=== PATIENT | female | born 1980 | race Caucasian/White ===

== ENCOUNTER 2017-01-10 08:32 | Emergency (ER) | payer OTHER ==
[~2017-01-10] VITALS: Ht 162.6 cm; Wt 49.9 kg
[~2017-01-10 08:32] MED LIST: IBUP800T19 PO; METO10TA81 PO
[2017-01-10 09:15] LABS: BASO # 0.1 x10^3/uL (0.0-0.2); BASO % 1 % (0-3); EOS % 0 % (0-3); HEMATOCRIT 38.8 % (36.0-47.0); HEMOGLOBIN 12.9 g/dL (12.0-15.5); LYMPH # 1.6 x10^3/uL (1.0-4.8); LYMPH % 15 % (24-48); MEAN CORPUSCULAR HEMOGLOBIN 28 pg (25-35); MEAN CORPUSCULAR HGB CONC 33 g/dL (31-37); MEAN CORPUSCULAR VOLUME 84 fL (79-100); MONO # 0.4 x10^3/uL (0.0-1.1); MONO % 4 % (0-9); NEUT # 8.7 x10^3uL (1.8-7.7); NEUT % 81 % (31-73); PLATELET COUNT 205 x10^3/uL (140-400); RED BLOOD COUNT 4.59 x10^6/uL (3.50-5.40); RED CELL DISTRIBUTION WIDTH 16.1 % (11.5-14.5); WHITE BLOOD COUNT 10.8 x10^3/uL (4.0-11.0)
[2017-01-10 09:17] LABS: PREG TEST PT QUAL NEGATIVE (NEG)
[2017-01-10] MEDS: HYDROmorphone PF 1 MG/ML DISP.SYRIN IV/SQ PRN ×2 (09:23→10:45)
--- NOTE | 2017-01-10 09:25 | PHYS DOC ---
Past History Past Medical History: IBS Past Surgical History: Cholecystectomy, Alcohol Use: None Drug Use: None Adult General Chief Complaint Chief Complaint: ABDOMINAL PAIN HPI HPI 36-year-old female with a history of IBS presenting to the emergency department with epigastric abdominal pain that is nonradiating moderate intermittent and without alleviating factors. She denies being reports normal stooling, denies blood in her stools or dark stools. She denies history of alcoholism corticosteroid use or excessive ibuprofen or NSAID use. She denies fevers chills but does have nausea. Review of systems is negative for chest pain shortness of breath fevers chills. Positive for chronic intermittent diarrhea and constipation consistent with her IBS. All other review of systems is negative unless otherwise noted in history of present illness. ED course: 36-year-old female presenting to the emergency department today with epigastric abdominal pain. Patient's vital signs were reviewed. Afebrile saturating well on room air with mild elevation in her heart rate. IV established and IV fluids and pain medications administered in the emergency department. Blood work sent. Pertinent examination findings show soft and minimally tender abdomen generally without rebound tenderness or guarding. Negative Salcedo sign. Negative McBurney's point. Under clear to auscultation. The remainder the exam is unremarkable. On reexamination the patient's feeling much better and subsequently was discharged home. The patient was then discharged home in stable condition to follow up with their primary care physician over the next 2-3 days. They were to return if their symptoms worsened or if they were concerned for any reason. [id number] discharge instructions and return precautions were given. Patient's questions were answered to their satisfaction. Patient is comfortable plan. Review of Systems Review of Systems SEE ABOVE Current Medications Current Medications Current Medications Medications (Trade) Dose Ordered Sig/[facility] Start Time Stop Time Status Last Admin Dose Admin Hydromorphone HCl (Dilaudid) 0.5 mg PRN Q15MIN PRN 01/10/17 09:00 01/11/17 08:59 Sodium Chloride 1,000 ml @ 1,000 mls/hr Q1H 01/10/17 09:30 01/10/17 10:29 Allergies Allergies Allergies Coded Allergies Type Severity Reaction Last Updated Verified No Known Drug Allergies 06/07/16 No Physical Exam Physical Exam SEE ABOVE Constitutional: Well developed, well nourished, no acute distress, non-toxic appearance. [] HENT: Normocephalic, atraumatic, bilateral external ears normal, oropharynx moist, no oral exudates, nose normal. [] Eyes: PERRLA, EOMI, conjunctiva normal, no discharge. [] Neck: Normal range of motion, no tenderness, supple, no stridor. [] Cardiovascular:Heart rate regular rhythm, no murmur [] Lungs & Thorax: Bilateral breath sounds clear to auscultation [] Abdomen: see above Skin: Warm, dry, no erythema, no rash. [] Back: No tenderness, no CVA tenderness. [] Extremities: No tenderness, no cyanosis, no clubbing, ROM intact, no edema. [] Neurologic: Alert and oriented X 3, normal motor function, normal sensory function, no focal deficits noted. [] Psychologic: Affect normal, judgement normal, mood normal. [] Current Patient Data Lab Results Laboratory Tests Test 01/10/17 08:56 White Blood Count 10.8 x10^3/uL (4.0-11.0) Red Blood Count 4.59 x10^6/uL (3.50-5.40) Hemoglobin 12.9 g/dL (12.0-15.5) Hematocrit 38.8 % (36.0-47.0) Mean Corpuscular Volume 84 fL (79-100) Mean Corpuscular Hemoglobin 28 pg (25-35) Mean Corpuscular Hemoglobin Concent 33 g/dL (31-37) Red Cell Distribution Width 16.1 % (11.5-14.5) H Platelet Count 205 x10^3/uL (140-400) Neutrophils (%) (Auto) 81 % (31-73) H Lymphocytes (%) (Auto) 15 % (24-48) L Monocytes (%) (Auto) 4 % (0-9) Eosinophils (%) (Auto) 0 % (0-3) Basophils (%) (Auto) 1 % (0-3) Neutrophils # (Auto) 8.7 x10^3uL (1.8-7.7) H Lymphocytes # (Auto) 1.6 x10^3/uL (1.0-4.8) Monocytes # (Auto) 0.4 x10^3/uL (0.0-1.1) Eosinophils # (Auto) 0.0 x10^3/uL (0.0-0.7) Basophils # (Auto) 0.1 x10^3/uL (0.0-0.2) Serum Test, Qualitative Negative (NEG) EKG EKG [] Radiology/Procedures Radiology/Procedures [] Course & Med Decision Making Course & Med Decision Making Pertinent Labs and Imaging studies reviewed. (See chart for details) [] Dragon Disclaimer Dragon Disclaimer This chart was dictated in whole or in part using Voice Recognition software in a busy, high-work load, and often noisy Emergency Department environment. It may contain unintended and wholly unrecognized errors or omissions. Departure Departure: Impression: Primary Impression: Abdominal pain Disposition: HOME, SELF-CARE Condition: STABLE Referrals: MONSE MALLOY MD (PCP) Patient Instructions: Abdominal Pain, Women Additional Instructions: Thank you for allowing us to participate in your care today. Followup with your primary care physician in 3 days if your symptoms do not improve. Call your Primary Doctor tomorrow and inform them of your visit today. If you do not have a primary care provider you can ask for a list of our primary care providers. Return to the emergency department you have any new or concerning findings. This should be evaluated by the primary care physician and any necessary consulting services for continued management within a few days after discharge. Return to emergency room if you have any new or concerning symptoms including but not limited to fever, chills, nausea, vomiting, intractable pain, any new rashes, chest pain, shortness of air, uncontrolled bleeding, difficulty breathing, and/or vision loss. You may have been prescribed medication that can change in your level of thinking and ability to operate machinery. These medications include hydrocodone and Ativan. Also, Benadryl has been known to do this as well. Be sure to check with your pharmacist and ask if the medications you've prescribed can affect your level of consciousness. I recommend not operating heavy machinery or driving while on medication such as these. Scripts Ondansetron Hcl (ZOFRAN) 4 Mg Tablet 1 TAB PO PRN Q6HRS Y for NAUSEA, #6 TAB Prov: PAO ZUNIGA MD 01/10/17 Hydrocodone Bit/Acetaminophen (HYDROCODONE-APAP 5-325 ) 1 Each Tablet 1 TAB PO PRN Q6HRS Y for PAIN, #10 TAB 0 Refills Prov: PAO ZUNIGA MD 01/10/17 Famotidine (PEPCID) 20 Mg Tablet 1 TAB PO BID, #7 TAB 0 Refills Prov: PAO ZUNIGA MD 01/10/17 PAO ZUNIGA MD Jan 10, 2017 09:25
[2017-01-10] MEDS ORDERED: IV NORMAL SALINE 1,000ML 1,000 ML IV SCH (09:30)
[2017-01-10] MEDS ORDERED: FAMO-63 PO (09:31)
[2017-01-10] MEDS ORDERED: ONDA4TAB7 PO (09:31)
[2017-01-10] MEDS ORDERED: HYDR-2758 PO (09:31)
[2017-01-10 09:36] LABS: ALBUMIN 3.4 g/dL (3.4-5.0); CALCIUM 9.2 mg/dL (8.5-10.1); CREATININE 0.8 mg/dL (0.6-1.0); DIRECT BILIRUBIN 0.1 mg/dL (0.0-0.2); GFR 81.6; POTASSIUM 4.2 mmol/L (3.5-5.1); TOTAL BILIRUBIN 0.2 mg/dL (0.2-1.0); TOTAL PROTEIN 7.4 g/dL (6.4-8.2)
[2017-01-10] MEDS ORDERED: ONDANSETRON PF 4 MG/2 ML VIAL. IV ONE (10:10)
[2017-01-10 10:42] LABS: BACTERIA,URINE 0 /HPF (0-FEW); BILIRUBIN,URINE NEG (NEG); CLARITY,URINE CLEAR; COLOR,URINE YELLOW; GLUCOSE,URINE NEG (NEG); HYALINE CASTS, URINE OCC /HPF; NITRITE,URINE NEG (NEG); SQUAMOUS EPITHELIAL CELL,UR FEW /LPF; UROBILINOGEN,URINE 0.2 mg/dL (0.2 mg/dL); WBC,URINE OCC /HPF (0-4)
[2017-01-10 11:15] VITALS: BP 116/74
== END 2017-01-10 11:20 | disposition home or self-care (01) ==
LOC: ER 08:32
DX: R10.13 Epigastric pain (principal); K58.9 Irritable bowel syndrome, unspecified; Z90.49 Acquired absence of other specified parts of digestive tract; Z98.890 Other specified postprocedural states
CPT/HCPCS: 36415; 80048; 80076; 81001; 83690; 84703; 85027; 96361; 96374; 96375; 96376; 99285; J1170; J2405; J7030

== ENCOUNTER 2018-11-20 01:40 | Emergency (ER) | payer OTHER ==
[~2018-11-20] VITALS: Ht 162.6 cm; Wt 49.9 kg
[~2018-11-20 01:40] MED LIST changes: +FAMO-63 PO; +HYDR-2155 PO; +ONDA4TAB7 PO
[2018-11-20] MEDS ORDERED: ONDANSETRON PF 4 MG/2 ML VIAL. IV ONE ×4 (02:30→03:30)
[2018-11-20] MEDS ORDERED: IV NORMAL SALINE 1,000ML 1,000 ML IV ONE (02:30)
--- NOTE | 2018-11-20 02:47 | PHYS DOC ---
Past History Past Medical History: IBS Past Surgical History: Cholecystectomy, Alcohol Use: Occasionally Drug Use: None Adult General Chief Complaint Chief Complaint: ABDOMINAL PAIN HPI HPI 38-year-old female presents with left-sided abdominal pain. 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 She is on Cymbalta, gets trigger injections, and nerve blocks with this disorder. Sometimes, it still gets adequate control and she has increased pain and spasming in the left abdominal wall. She has had multiple CT scans in the past without significant findings. She denies trauma or new inciting event. She denies fever or chills. Both morphine and fentanyl have worked in the past. The patient is willing to try whatever I think will help. Review of Systems Review of Systems Constitutional: Denies fever or chills [] Eyes: Denies change in visual acuity, redness, or eye pain [] HENT: Denies nasal congestion or sore throat [] Respiratory: Denies cough or shortness of breath [] Cardiovascular: No additional information not addressed in HPI [] GI: Left-sided abdominal pain. Denies nausea, vomiting, bloody stools or diarrhea [] : Denies dysuria or hematuria [] Musculoskeletal: Denies back pain or joint pain [] Integument: Denies rash or skin lesions [] Neurologic: Denies headache, focal weakness or sensory changes [] Endocrine: Denies polyuria or polydipsia [] All other systems were reviewed and found to be within normal limits, except as documented in this note. Current Medications Current Medications Current Medications Medications (Trade) Dose Ordered Sig/[facility] Start Time Stop Time Status Last Admin Dose Admin Ondansetron HCl (Zofran) 4 mg 1X ONCE 11/20/18 02:30 11/20/18 02:31 DC 11/20/18 02:31 4 MG Sodium Chloride 1,000 ml @ 1,000 mls/hr 1X ONCE 11/20/18 02:30 11/20/18 03:29 11/20/18 02:31 1,000 MLS/HR Allergies Allergies Allergies Coded Allergies Type Severity Reaction Last Updated Verified No Known Drug Allergies 06/07/16 No Physical Exam Physical Exam Constitutional: Well developed, well nourished, no acute distress, non-toxic appearance. [] HENT: Normocephalic, atraumatic, bilateral external ears normal, oropharynx moist, no oral exudates, nose normal. [] Eyes: PERRLA, EOMI, conjunctiva normal, no discharge. [] Neck: Normal range of motion, no tenderness, supple, no stridor. [] Cardiovascular:Heart rate regular rhythm, no murmur [] Lungs & Thorax: Bilateral breath sounds clear to auscultation [] Abdomen: Bowel sounds normal, soft, left sided tenderness, no masses, no pulsatile masses. [] Skin: Warm, dry, no erythema, no rash. [] Back: No tenderness, no CVA tenderness. [] Extremities: No tenderness, no cyanosis, no clubbing, ROM intact, no edema. [] Neurologic: Alert and oriented X 3, normal motor function, normal sensory function, no focal deficits noted. [] Psychologic: Affect normal, judgement normal, mood normal. [] Current Patient Data Vital Signs Vital Signs Date Time Temp Pulse Resp B/P (MAP) Pulse Ox O2 Delivery O2 Flow Rate FiO2 11/20/18 02:11 98.2 79 14 99 Room Air EKG EKG [] Radiology/Procedures Radiology/Procedures [] Course & Med Decision Making Course & Med Decision Making Pertinent Labs and Imaging studies reviewed. (See chart for details) I looked up the patient in the drug tracking database. She only has one entry from last year. I will give her 2 mg of morphine as well as 2 mg of Ativan to see if this controls her symptoms. Labs are pending. I will avoid a CT scan unless she has abnormal labs. The patient's labs are unremarkable. I do not believe a CT is warranted. The patient's pain is much improved at this time. She is stable for discharge. [] Dragon Disclaimer Dragon Disclaimer This electronic medical record was generated, in whole or in part, using a voice recognition dictation system. Departure Departure: Impression: Primary Impression: Left sided abdominal pain Disposition: HOME, SELF-CARE Condition: STABLE Referrals: MONSE MALLOY MD (PCP) Patient Instructions: Abdominal Pain, Women JEANETTE LEAL DO Nov 20, 2018 02:47
[2018-11-20 02:59] LABS: BASO # 0.1 x10^3/uL (0.0-0.2); BASO % 1 % (0-3); EOS % 0 % (0-3); HEMATOCRIT 40.1 % (36.0-47.0); HEMOGLOBIN 13.7 g/dL (12.0-15.5); LYMPH # 1.3 x10^3/uL (1.0-4.8); LYMPH % 12 % (24-48); MEAN CORPUSCULAR HEMOGLOBIN 32 pg (25-35); MEAN CORPUSCULAR HGB CONC 34 g/dL (31-37); MEAN CORPUSCULAR VOLUME 92 fL (79-100); MONO # 0.4 x10^3/uL (0.0-1.1); MONO % 4 % (0-9); NEUT # 8.7 x10^3uL (1.8-7.7); NEUT % 83 % (31-73); PLATELET COUNT 259 x10^3/uL (140-400); RED BLOOD COUNT 4.36 x10^6/uL (3.50-5.40); RED CELL DISTRIBUTION WIDTH 12.8 % (11.5-14.5); WHITE BLOOD COUNT 10.5 x10^3/uL (4.0-11.0)
[2018-11-20] MEDS ORDERED: MORPHINE SULFATE 2 MG/ML DISP.SYRIN. IV ONE (03:00)
[2018-11-20 03:05] LABS: ALBUMIN 3.5 g/dL (3.4-5.0); ALBUMIN/GLOBULIN RATIO 0.9 (1.0-1.7); CALCIUM 9.7 mg/dL (8.5-10.1); CREATININE 0.7 mg/dL (0.6-1.0); GFR 94.2; POTASSIUM 4.1 mmol/L (3.5-5.1); TOTAL BILIRUBIN 0.3 mg/dL (0.2-1.0); TOTAL PROTEIN 7.4 g/dL (6.4-8.2)
[2018-11-20 03:16] LABS: BILIRUBIN,URINE NEG (NEG); CLARITY,URINE HAZY; COLOR,URINE YELLOW; GLUCOSE,URINE NEG (NEG)
[2018-11-20 03:17] LABS: BACTERIA,URINE FEW /HPF (0-FEW); NITRITE,URINE NEG (NEG); SQUAMOUS EPITHELIAL CELL,UR FEW /LPF; UROBILINOGEN,URINE 0.2 mg/dL (0.2 mg/dL); WBC,URINE OCC /HPF (0-4)
[2018-11-20 03:45] VITALS: BP 135/86
== END 2018-11-20 04:03 | disposition home or self-care (01) ==
LOC: ER 01:40
DX: R10.9 Unspecified abdominal pain (principal); K58.9 Irritable bowel syndrome, unspecified; Z90.49 Acquired absence of other specified parts of digestive tract; Z98.890 Other specified postprocedural states
CPT/HCPCS: 36415; 80053; 81001; 81025; 85025; 96374; 96375; 96376; 99284; J2060; J2270; J2405; J7030

== ENCOUNTER 2018-11-20 08:18 | Emergency (ER) | payer OTHER ==
[~2018-11-20] VITALS: Ht 162.6 cm; Wt 49.9 kg
[2018-11-20 08:29] VITALS: BP 133/87
--- NOTE | 2018-11-20 08:35 | PHYS DOC ---
Past History Past Medical History: IBS Past Surgical History: Cholecystectomy, Alcohol Use: Occasionally Drug Use: None Adult General Chief Complaint Chief Complaint: ABDOMINAL PAIN [facility] HPI Patient is a 38-year-old female who presents with complaint of continued abdominal pain with vomiting. Patient indicates that she has chronic abdominal pain due to endometriosis. He states that she has a nerve bundle that they provide trigger point injections and nerve blocks for over at . She states that she was seen here earlier this morning and had been given some medications but she states that they have not helped with her pain. Patient states that she is usually given fentanyl for pain. She states that that is what helps.[] Review of Systems Review of Systems Constitutional: Denies fever or chills [] Respiratory: Denies cough or shortness of breath [] Cardiovascular: No additional information not addressed in HPI [] GI: Complains of abdominal pain with nausea and vomiting. Denies diarrhea [] Integument: Denies rash or skin lesions [] All other systems were reviewed and found to be within normal limits, except as documented in this note. Allergies Allergies Allergies Coded Allergies Type Severity Reaction Last Updated Verified No Known Drug Allergies 06/07/16 No Physical Exam Physical Exam Constitutional: Well developed, well nourished, no acute distress, non-toxic appearance. [] HENT: Normocephalic, atraumatic, bilateral external ears normal, oropharynx moist, no oral exudates, nose normal. [] Eyes: PERRLA, EOMI, conjunctiva normal, no discharge. [] Neck: Normal range of motion, no tenderness, supple, no stridor. [] Cardiovascular: Regular rate and rhythm[] Lungs & Thorax: Bilateral breath sounds clear to auscultation [] Abdomen: Bowel sounds normal, soft, with diffuse reported tenderness. [] Skin: Warm, dry, no erythema, no rash. [] Extremities: No tenderness, no cyanosis, no clubbing, ROM intact. [] Neurologic: Alert and oriented X 3, no focal deficits noted. [] EKG EKG [] Radiology/Procedures Radiology/Procedures [] Course & Med Decision Making Course & Med Decision Making Pertinent Labs and Imaging studies reviewed. (See chart for details) [] Dragon Disclaimer Dragon Disclaimer This electronic medical record was generated, in whole or in part, using a voice recognition dictation system. Departure Departure: Impression: Primary Impression: Chronic abdominal pain Disposition: HOME, SELF-CARE Condition: STABLE Referrals: MONSE MALLOY MD (PCP) Patient Instructions: Abdominal Pain, Chronic Pain, Chronic Pain Management SALINAS LITTLE Jr. DO Nov 20, 2018 08:35
[2018-11-20] MEDS ORDERED: METOCLOPRAMIDE HCL 10 MG/2 ML VIAL. IM ONE (09:10)
== END 2018-11-20 09:46 | disposition home or self-care (01) ==
LOC: ER 08:18
DX: G89.29 Other chronic pain (principal); R10.84 Generalized abdominal pain; K58.9 Irritable bowel syndrome, unspecified; Z90.49 Acquired absence of other specified parts of digestive tract; Z98.890 Other specified postprocedural states
CPT/HCPCS: 96372; 99284; J2765; J3010

== ENCOUNTER 2020-01-21 14:02 | Emergency (ER) | payer OTHER ==
[~2020-01-21] VITALS: Ht 162.6 cm; Wt 53.2 kg
[2020-01-21] MEDS ORDERED: KETOROLAC 15 MG/ML VIAL. ONE (14:27)
[2020-01-21] MEDS ORDERED: IV NORMAL SALINE 1,000ML 1,000 ML IV ONE (14:30)
[2020-01-21] MEDS ORDERED: IOHEXOL 300 MG/ML 75 ML VIAL. IV ONE (14:45)
[2020-01-21] MEDS ORDERED: KETOROLAC 15 MG/ML VIAL. IVP ONE (14:45)
[2020-01-21 15:01] LABS: BASO % 1 % (0-3); EOS % 1 % (0-3); HEMATOCRIT 37.6 % (36.0-47.0); HEMOGLOBIN 12.6 g/dL (12.0-15.5); LYMPH % 32 % (24-48); MEAN CORPUSCULAR HEMOGLOBIN 32 pg (25-35); MEAN CORPUSCULAR HGB CONC 34 g/dL (31-37); MEAN CORPUSCULAR VOLUME 94 fL (79-100); MONO # 0.4 x10^3/uL (0.0-1.1); MONO % 7 % (0-9); NEUT # 3.8 x10^3uL (1.8-7.7); NEUT % 60 % (31-73); PLATELET COUNT 208 x10^3/uL (140-400); RED BLOOD COUNT 3.98 x10^6/uL (3.50-5.40); RED CELL DISTRIBUTION WIDTH 12.2 % (11.5-14.5); WHITE BLOOD COUNT 6.3 x10^3/uL (4.0-11.0)
[2020-01-21 15:09] LABS: CALCIUM 8.8 mg/dL (8.5-10.1); CREATININE 0.8 mg/dL (0.6-1.0); GFR 80.3; POTASSIUM 3.7 mmol/L (3.5-5.1)
[2020-01-21 15:13] LABS: ALBUMIN 3.2 g/dL (3.4-5.0); ALBUMIN/GLOBULIN RATIO 0.7 (1.0-1.7); TOTAL BILIRUBIN 0.3 mg/dL (0.2-1.0); TOTAL PROTEIN 7.5 g/dL (6.4-8.2)
[2020-01-21 15:15] LABS: BILIRUBIN,URINE NEG (NEG); CLARITY,URINE HAZY; COLOR,URINE STRAW; GLUCOSE,URINE NEG (NEG)
[2020-01-21 15:16] LABS: NITRITE,URINE NEG (NEG); RBC,URINE OCC /HPF (0-2); UROBILINOGEN,URINE 0.2 mg/dL (0.2 mg/dL)
[2020-01-21 15:17] LABS: BACTERIA,URINE FEW /HPF (0-FEW); SQUAMOUS EPITHELIAL CELL,UR OCC /LPF
--- NOTE | 2020-01-21 15:34 | RAD ---
Study: CT abdomen/pelvis with intravenous contrast Indication: Abdominal pain. Comparison: None. Technique: Helical CT imaging performed of the abdomen and pelvis after the intravenous administration of 75 cc Omnipaque 300 contrast. Sagittal and coronal reformats were obtained. One or more of the following individualized dose reduction techniques were utilized for this examination: 1. Automated exposure control 2. Adjustment of the mA and/or kV according to patient size 3. Use of iterative reconstruction technique. Findings: Chest: Unremarkable. Liver: Unremarkable. Gallbladder/Biliary Tree: Mild prominence of the central intrahepatic biliary tree and common duct in the setting of previous cholecystectomy typical of reservoir effect. Pancreas: Unremarkable. Spleen: Normal. Adrenal Glands: Unremarkable. Kidneys/Ureters/Bladder: Approximately 4 small intrarenal stones on the left. No stones seen on the right. No no stone seen within either ureter or within the bladder. Mild asymmetric prominence of the left renal pelvis and similar intermittent prominence of both ureters. 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 Normal bladder wall thickness. No striated nephrogram. Reproductive Organs: Thickening of the endometrium is not atypical given patient age. There does appear to be a small amount of fluid within the endometrial canal, image 32 series 4. Small right adnexal cyst, likely ovarian in origin, image 62 series 2 measuring up to 1.3 cm. Colon: No acute abnormality. Appendix: Unremarkable. Small Bowel: Nonobstructed. Stomach: Unremarkable. Vasculature: Within normal limits. Lymph Nodes: Scattered mildly prominent mesenteric lymph nodes but all measuring subcentimeter in size. No pathologically enlarged lymph node is identified. Peritoneum and Body Wall: No free fluid or gas. Bones: No acute or aggressive osseous process. Mild broad levocurvature of the visualized orbital lumbar spine. Miscellaneous: None. Impression: 1. No acute abnormality seen throughout the abdomen or pelvis. The endometrium is thickened and there does appear to be a small amount of fluid within the endometrial canal but this is not overtly abnormal given presumed premenopausal state. As deemed necessary, pelvic ultrasound could be performed to further assess. 2. Approximately four small intrarenal stones on the left but no obstructing stone is seen. 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 Electronically signed by: INDIA DICKSON MD (01/21/2020 3:31 PM) [id number]
--- NOTE | 2020-01-21 16:23 | PHYS DOC ---
Past History Past Medical History: Endometriosis, Other Additional Past Medical Histor: ABD MIGRANES Past Surgical History: Cholecystectomy, , Tubal ligation, Other Additional Past Surgical Histo: ABD EXPLOR LAP Alcohol Use: Occasionally Drug Use: None General Adult EDM: Chief Complaint: PELVIC PAIN HPI: HPI: Patient is a [age] year old [sex] who presents with [] Review of Systems: Review of Systems: Constitutional: Denies fever or chills Eyes: Denies change in visual acuity HENT: Denies nasal congestion or sore throat Respiratory: Denies cough or shortness of breath Cardiovascular: Denies chest pain or edema GI: Denies abdominal pain, nausea, vomiting, bloody stools or diarrhea : Denies dysuria Musculoskeletal: Denies back pain or joint pain Integument: Denies rash Neurologic: Denies headache, focal weakness or sensory changes Endocrine: Denies polyuria or polydipsia Lymphatic: Denies swollen glands Psychiatric: Denies depression or anxiety Heart Score: Risk Factors: Risk Factors: DM, Current or recent (<one month) smoker, HTN, HLP, family history of CAD, obesity. Risk Scores: Score 0 - 3: 2.5% MACE over next 6 weeks - Discharge Home Score 4 - 6: 20.3% MACE over next 6 weeks - Admit for Clinical Observation Score 7 - 10: 72.7% MACE over next 6 weeks - Early Invasive Strategies Current Medications: Current Meds: Current Medications Medications (Trade) Dose Ordered Sig/Suha Start Time Stop Time Status Last Admin Dose Admin Iohexol (Omnipaque 300 Mg/ml) 75 ml 1X ONCE 01/21/20 14:45 01/21/20 14:46 DC 01/21/20 15:01 75 ML Ketorolac Tromethamine (Toradol 15mg Vial) 15 mg STK-MED ONCE 01/21/20 14:27 01/21/20 14:27 DC Sodium Chloride 1,000 ml @ 1,000 mls/hr 1X ONCE 01/21/20 14:30 01/21/20 15:29 DC 01/21/20 14:48 1,000 MLS/HR Allergies: Allergies: Allergies Coded Allergies Type Severity Reaction Last Updated Verified No Known Drug Allergies 01/21/20 No Physical Exam: PE: Constitutional: Well developed, well nourished, no acute distress, non-toxic appearance. [] HENT: Normocephalic, atraumatic, bilateral external ears normal, oropharynx carisa st, no oral exudates, nose normal. [] Eyes: PERRLA, EOMI, conjunctiva normal, no discharge. [] Neck: Normal range of motion, no tenderness, supple, no stridor. [] Cardiovascular:Heart rate regular rhythm, no murmur [] Lungs & Thorax: Bilateral breath sounds clear to auscultation [] Abdomen: Bowel sounds normal, soft, no tenderness, no masses, no pulsatile masses. [] Skin: Warm, dry, no erythema, no rash. [] Back: No tenderness, no CVA tenderness. [] Extremities: No tenderness, no cyanosis, no clubbing, ROM intact, no edema. [] Neurologic: Alert and oriented X 3, normal motor function, normal sensory function, no focal deficits noted. [] Psychologic: Affect normal, judgement normal, mood normal. [] Current Patient Data: Labs: Laboratory Tests Test 01/21/20 14:15 01/21/20 14:35 01/21/20 14:50 01/21/20 15:15 Urine Collection Type Void Urine Color Straw Urine Clarity Hazy Urine pH 7.0 Urine Specific [place] 1.015 Urine Protein Neg (NEG-TRACE) Urine Glucose (UA) Neg mg/dL (NEG) Urine Ketones (Stick) Neg mg/dL (NEG) Urine Blood Neg (NEG) Urine Nitrite Neg (NEG) Urine Bilirubin Neg (NEG) Urine Urobilinogen Dipstick 0.2 mg/dL (0.2 mg/dL) Urine Leukocyte Esterase Neg (NEG) Urine RBC Occ /HPF (0-2) Urine WBC 1-4 /HPF (0-4) Urine Squamous Epithelial Cells Occ /LPF Urine Bacteria Few /HPF (0-FEW) White Blood Count 6.3 x10^3/uL (4.0-11.0) Red Blood Count 3.98 x10^6/uL (3.50-5.40) Hemoglobin 12.6 g/dL (12.0-15.5) Hematocrit 37.6 % (36.0-47.0) Mean Corpuscular Volume 94 fL (79-100) Mean Corpuscular Hemoglobin 32 pg (25-35) Mean Corpuscular Hemoglobin Concent 34 g/dL (31-37) Red Cell Distribution Width 12.2 % (11.5-14.5) Platelet Count 208 x10^3/uL (140-400) Neutrophils (%) (Auto) 60 % (31-73) Lymphocytes (%) (Auto) 32 % (24-48) Monocytes (%) (Auto) 7 % (0-9) Eosinophils (%) (Auto) 1 % (0-3) Basophils (%) (Auto) 1 % (0-3) Neutrophils # (Auto) 3.8 x10^3uL (1.8-7.7) Lymphocytes # (Auto) 2.0 x10^3/uL (1.0-4.8) Monocytes # (Auto) 0.4 x10^3/uL (0.0-1.1) Eosinophils # (Auto) 0.0 x10^3/uL (0.0-0.7) Basophils # (Auto) 0.0 x10^3/uL (0.0-0.2) Sodium Level 140 mmol/L (136-145) Potassium Level 3.7 mmol/L (3.5-5.1) Chloride Level 107 mmol/L (98-107) Carbon Dioxide Level 19 mmol/L (21-32) L Anion Gap 14 (6-14) Blood Urea Nitrogen 21 mg/dL (7-20) H Creatinine 0.8 mg/dL (0.6-1.0) Estimated GFR (Cockcroft-Gault) 80.3 BUN/Creatinine Ratio 26 (6-20) H Glucose Level 99 mg/dL (70-99) Calcium Level 8.8 mg/dL (8.5-10.1) Magnesium Level 2.0 mg/dL (1.8-2.4) Total Bilirubin 0.3 mg/dL (0.2-1.0) Aspartate Amino Transferase (AST) 17 U/L (15-37) Alanine Aminotransferase (ALT) 17 U/L (14-59) Alkaline Phosphatase 46 U/L (46-116) Total Protein 7.5 g/dL (6.4-8.2) Albumin 3.2 g/dL (3.4-5.0) L Albumin/Globulin Ratio 0.7 (1.0-1.7) L Lipase 92 U/L (73-393) POC Urine HCG, Qualitative hcg negative (Negative) Prothrombin Time 10.0 SEC (9.4-11.4) Prothrombin Time INR 0.9 (0.9-1.1) Activated Partial Thromboplast Time 28 SEC (23-33) Vital Signs: Vital Signs Date Time Temp Pulse Resp B/P (MAP) Pulse Ox O2 Delivery O2 Flow Rate FiO2 01/21/20 14:08 98.4 89 18 124/71 (88) 96 Room Air EKG: EKG: [] Radiology/Procedures: Radiology/Procedures: PROCEDURE: CT ABD PELV W/ IV CONTRST ONLY Study: CT abdomen/pelvis with intravenous contrast Indication: Abdominal pain. Comparison: None. Technique: Helical CT imaging performed of the abdomen and pelvis after the intravenous administration of 75 cc Omnipaque 300 contrast. Sagittal and coronal reformats were obtained. One or more of the following individualized dose reduction techniques were utilized for this examination: 1. Automated exposure control 2. Adjustment of the mA and/or kV according to patient size 3. Use of iterative reconstruction technique. Findings: Chest: Unremarkable. Liver: Unremarkable. Gallbladder/Biliary Tree: Mild prominence of the central intrahepatic biliary tree and common duct in the setting of previous cholecystectomy typical of reservoir effect. Pancreas: Unremarkable. Spleen: Normal. Adrenal Glands: Unremarkable. Kidneys/Ureters/Bladder: Approximately 4 small intrarenal stones on the left. No stones seen on the right. No no stone seen within either ureter or within the bladder. Mild asymmetric prominence of the left renal pelvis and similar intermittent prominence of both ureters. 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 Normal bladder wall thickness. No striated nephrogram. Reproductive Organs: Thickening of the endometrium is not atypical given patient age. There does appear to be a small amount of fluid within the endometrial canal, image 32 series 4. Small right adnexal cyst, likely ovarian in origin, image 62 series 2 measuring up to 1.3 cm. Colon: No acute abnormality. Appendix: Unremarkable. Small Bowel: Nonobstructed. Stomach: Unremarkable. Vasculature: Within normal limits. Lymph Nodes: Scattered mildly prominent mesenteric lymph nodes but all measuring subcentimeter in size. No pathologically enlarged lymph node is identified. Peritoneum and Body Wall: No free fluid or gas. Bones: No acute or aggressive osseous process. Mild broad levocurvature of the visualized orbital lumbar spine. Miscellaneous: None. Impression: 1. No acute abnormality seen throughout the abdomen or pelvis. The endometrium is thickened and there does appear to be a small amount of fluid within the endometrial canal but this is not overtly abnormal given presumed premenopausal state. As deemed necessary, pelvic ultrasound could be performed to further assess. 2. Approximately four small intrarenal stones on the left but no obstructing stone is seen. 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 Electronically signed by: INDIA DICKSON MD (01/21/2020 3:31 PM) [id number] Course & Med Decision Making: Course & Med Decision Making Pertinent Labs and Imaging studies reviewed. (See chart for details) [] Dragon Disclaimer: Dragon Disclaimer: This electronic medical record was generated, in whole or in part, using a voice recognition dictation system. Departure Departure: Impression: Primary Impression: Abdominal pain Qualified Codes: R10.32 - Left lower quadrant pain Disposition: HOME/RESIDENCE PRIOR TO ADM Condition: STABLE Referrals: PCP,UNKNOWN (PCP) FRANK WEINER MD Patient Instructions: Abdominal Pain (Nonspecific) Scripts Hydrocodone Bit/Acetaminophen (NORCO 5-325 TABLET) 1 Each Tablet 0.5-1 TAB PO Q6HRS PRN for PAIN, #10 TAB Prov: ALEXIA MATUTE DO 01/21/20 Justification of Admission: Justification of Admission: Justification of Admission Dx: N/A ALEXIA MATUTE DO Jan 21, 2020 16:23
[2020-01-21] MEDS ORDERED: HYDR-3165 PO (16:56)
[2020-01-21 17:34] VITALS: BP 116/68
== END 2020-01-21 17:38 | disposition home or self-care (01) ==
LOC: ER 14:02
DX: R10.32 Left lower quadrant pain (principal); Z90.49 Acquired absence of other specified parts of digestive tract; Z98.890 Other specified postprocedural states; Z98.51 Tubal ligation status
CPT/HCPCS: 36415; 74177; 80053; 81001; 81025; 83690; 83735; 85025; 85610; 85730; 96361; 96374; 99285; J1885; J7030; Q9967

== ENCOUNTER 2020-12-05 16:09 | Emergency (ER) | payer OTHER ==
[~2020-12-05] VITALS: Ht 162.6 cm; Wt 53.2 kg
[~2020-12-05 16:09] MED LIST changes: +HYDR-3165 PO
[2020-12-05] MEDS ORDERED: cefTRIAXone IM 1 GM VIAL IM ONE (17:30)
[2020-12-05] MEDS ORDERED: CEPH500T PO (17:31)
--- NOTE | 2020-12-05 17:31 | PHYS DOC ---
Past History Past Medical History: Endometriosis, Other Additional Past Medical Histor: ABD MIGRANES Past Surgical History: Cholecystectomy, , Tubal ligation, Other Additional Past Surgical Histo: ABD EXPLOR LAP Smoking: Non-smoker Alcohol Use: Occasionally Drug Use: None General Adult EDM: Chief Complaint: CELLULITIS HPI: HPI: 40-year-old female presents with cellulitis of the posterior thigh of the right leg. She got stung by something at the pool yesterday around midday. When she went to bed it was the size of a quarter. Today it is 8 cm x 10 cm across. It is erythematous and red. There is no central abscess. She denies fever or chills. She has had cellulitis in the past. She does not believe she has ever had MRSA. Review of Systems: Review of Systems: Constitutional: Denies fever or chills Eyes: Denies change in visual acuity HENT: Denies nasal congestion or sore throat Respiratory: Denies cough or shortness of breath Cardiovascular: Denies chest pain or edema GI: Denies abdominal pain, nausea, vomiting, bloody stools or diarrhea : Denies dysuria Musculoskeletal: Denies back pain or joint pain Integument: Rash right posterior thigh Neurologic: Denies headache, focal weakness or sensory changes Endocrine: Denies polyuria or polydipsia Lymphatic: Denies swollen glands Psychiatric: Denies depression or anxiety Allergies: Allergies: Allergies Coded Allergies Type Severity Reaction Last Updated Verified No Known Drug Allergies 01/21/20 No Physical Exam: PE: Constitutional: Well developed, well nourished, no acute distress, non-toxic appearance. [] HENT: Normocephalic, atraumatic, bilateral external ears normal, oropharynx moist, no oral exudates, nose normal. [] Eyes: PERRLA, EOMI, conjunctiva normal, no discharge. [] Neck: Normal range of motion, no tenderness, supple, no stridor. [] Cardiovascular:Heart rate regular rhythm, no murmur [] Lungs & Thorax: Bilateral breath sounds clear to auscultation [] Abdomen: Bowel sounds normal, soft, no tenderness, no masses, no pulsatile masses. [] Skin: Warm, erythematous rash 8 cm x 10 cm on the right posterior thigh. No palpable abscess. [] Back: No tenderness, no CVA tenderness. [] Extremities: No tenderness, no cyanosis, no clubbing, ROM intact, no edema. [] Neurologic: Alert and oriented X 3, normal motor function, normal sensory function, no focal deficits noted. [] Psychologic: Affect normal, judgement normal, mood normal. [] Current Patient Data: Vital Signs: Vital Signs Date Time Temp Pulse Resp B/P (MAP) Pulse Ox O2 Delivery O2 Flow Rate FiO2 12/05/20 16:33 99.4 98 18 125/92 98 Room Air EKG: EKG: [] Radiology/Procedures: Radiology/Procedures: [] Heart Score: C/O Chest Pain: N/A Risk Factors: Risk Factors: DM, Current or recent (<one month) smoker, HTN, HLP, family history of CAD, obesity. Risk Scores: Score 0 - 3: 2.5% MACE over next 6 weeks - Discharge Home Score 4 - 6: 20.3% MACE over next 6 weeks - Admit for Clinical Observation Score 7 - 10: 72.7% MACE over next 6 weeks - Early Invasive Strategies Course & Med Decision Making: Course & Med Decision Making Pertinent Labs and Imaging studies reviewed. (See chart for details) Given the rapid spread of the infection, we will give the patient a gram of Rocephin IM and 7 days of Keflex for home. She is stable for discharge at this time. [] Hugh Disclaimer: Hugh Disclaimer: This electronic medical record was generated, in whole or in part, using a voice recognition dictation system. Departure Departure: Impression: Primary Impression: Cellulitis of right thigh Disposition: HOME / SELF CARE / HOMELESS Condition: STABLE Referrals: PCP,UNKNOWN (PCP) Patient Instructions: Cellulitis, [id number] Scripts Cephalexin (CEPHALEXIN) 500 Mg Tablet 1 TAB PO TID for cellulitis for 7 Days, #21 TAB Prov: JEANETTE LEAL DO 12/05/20 JEANETTE LEAL DO Dec 05, 2020 17:31
[2020-12-05 17:52] VITALS: BP 129/85
== END 2020-12-05 17:55 | disposition home or self-care (01) ==
LOC: ER 16:09
DX: L03.115 Cellulitis of right lower limb (principal)
CPT/HCPCS: 96372; 99283; J0696

== ENCOUNTER 2021-04-16 09:44 | Emergency (ER) | payer OTHER ==
[~2021-04-16] VITALS: Ht 162.6 cm; Wt 53.2 kg
[~2021-04-16 09:44] MED LIST changes: +CEPH500T PO
[2021-04-16] MEDS ORDERED: HYDROcodone/APAP 5/325MG 1 TAB TABLET PO ONE (10:30)
--- NOTE | 2021-04-16 10:46 | RAD ---
Examination: 4 views of the bilateral knees and 3 views of the bilateral ankles. HISTORY: History of pain COMPARISON: None available. FINDINGS: The alignment of the knee joint, interphalangeal joints grossly appears unremarkable. There is no acu te fracture or dislocation identified. IMPRESSION: No acute osseous findings. Electronically signed by: Rex Espinal MD (04/16/2021 10:44 AM) [id number]
--- NOTE | 2021-04-16 10:57 | PHYS DOC ---
Past History Past Medical History: Endometriosis, Other Additional Past Medical Histor: ABD MIGRANES (MICHELLEBEBETO Madi NEWS WRITER) Past Surgical History: Cholecystectomy, , Tubal ligation, Other Additional Past Surgical Histo: ABD EXPLOR LAP (MICHELLEBEBETO NEWS WRITER) Smoking: Non-smoker Alcohol Use: Rarely Drug Use: None (DONNABEBETO VAN APRN) Adult General Chief Complaint Chief Complaint: LOWER EXT PAIN HPI HPI Patient is a 40-year-old female patient with a history of endometriosis pr esented to the ED today complaining of 7 out of 10 bilateral knee pain radiating through the calves into the ankles, patient states pain began this morning. Patient denies any trauma. She is complaining of cramping bilateral calves worse on ambulation. She states she tried taking ibuprofen with no relief. She states sitting down and standing still makes the pain worse. She states ambulation relieves some of the pain. Patient denies being on any cholesterol medicine. (ZULEYMABEBETO Gustafson NEWS WRITER) Review of Systems Review of Systems Constitutional: Denies fever or chills [] Musculoskeletal: Reports bilateral knee pain, pain radiating through the calves into the ankles. Denies back pain Integument: Denies rash or skin lesions [] Neurologic: Denies headache, focal weakness or sensory changes [] All other systems were reviewed and found to be within normal limits, except as documented in this note. (DONNABEBETO VAN NEWS WRITER) Current Medications Current Medications Current Medications Medications (Trade) Dose Ordered Sig/Suha Start Time Stop Time Status Last Admin Dose Admin Acetaminophen/ Hydrocodone Bitart (Lortab 5/325) 1 tab 1X ONCE 04/16/21 10:30 04/16/21 10:31 DC 04/16/21 10:41 1 TAB (BEBETO MARTINEZ NEWS WRITER) Allergies Allergies Allergies Coded Allergies Type Severity Reaction Last Updated Verified No Known Drug Allergies 01/21/20 No (BEBETO MARTINEZ NEWS WRITER) Physical Exam Physical Exam Constitutional: Well developed, well nourished, no acute distress, non-toxic appearance. [] Skin: Warm, dry, no erythema, no rash. [] Back: No tenderness, no CVA tenderness. [] Extremities: Bilateral lower extremities with no obvious deformities, no tenderness to bilateral lower extremities, full range of motion to bilateral lower extremities including knees and ankles. Negative Homans' sign bilaterally. +2 bilateral pulses Neurologic: Alert and oriented X 3, normal motor function, normal sensory function, no focal deficits noted. [] Psychologic: Affect normal, judgement normal, mood normal. [] (DONNACARLOTABEBETO APRN) Current Patient Data Vital Signs Vital Signs Date Time Temp Pulse Resp B/P (MAP) Pulse Ox O2 Delivery O2 Flow Rate FiO2 04/16/21 10:41 18 Room Air 04/16/21 09:44 98.7 90 129/85 (100) 97 (BEBETO MARTINEZ APRN) EKG EKG [] (BEBETO MARTINEZ APRN) Radiology/Procedures Radiology/Procedures []PROCEDURE: KNEE BILAT 4V Examination: 4 views of the bilateral knees and 3 views of the bilateral ankles. HISTORY: History of pain COMPARISON: None available. FINDINGS: The alignment of the knee joint, interphalangeal joints grossly appears unremarkable. There is no acute fracture or dislocation identified. IMPRESSION: No acute osseous findings. Electronically signed by: Rex Espinal MD (04/16/2021 10:44 AM) [id number] DICTATED AND SIGNED BY: REX ESPINAL MD DATE: 04/16/21 1038 CC: BEBETO MARTINEZ APRN; PCP,NO ~MTH0 0 PROCEDURE: ANKLE BILAT 3V Examination: 4 views of the bilateral knees and 3 views of the bilateral ankles. HISTORY: History of pain COMPARISON: None available. FINDINGS: The alignment of the knee joint, interphalangeal joints grossly appears unremarkable. There is no acute fracture or dislocation identified. IMPRESSION: No acute osseous findings. Electronically signed by: Rex Espinal MD (04/16/2021 10:44 AM) [id number] DICTATED AND SIGNED BY: REX ESPINAL MD DATE: 04/16/21 1038 CC: BEBETO MARTINEZ APRN; PCP,NO ~MTH0 0 PROCEDURE: VENOUS LOWER EXT BILATERAL PROCEDURE: Ultrasound venous system of the bilateral lower extremity 04/16/2021 11:18 AM. REASON FOR STUDY: Reason: cramping / Spl. Instructions: / History: . TECHNIQUE: Color Doppler and spectral waveform analysis was performed along with real-time grayscale technique. FINDINGS: The deep veins of the lower extremities show normal compressibility and normal Doppler flow and augmentation of flow extending from the common femoral segment to the popliteal segment. The visualized calf veins also appear normal. IMPRESSION: No evidence of DVT. Electronically signed by: Zofia Jimenez Jr., MD (04/16/2021 11:18 AM) [id number] DICTATED AND SIGNED BY: ZOFIA JIMENEZ Jr, MD DATE: 04/16/21 1118 CC: BEBETO MARTINEZ APRN; PCP,NO ~MTH0 0 (BEBETO MARTINEZ APRN) Heart Score C/O Chest Pain: N/A Risk Factors: Risk Factors: DM, Current or recent (<one month) smoker, HTN, HLP, family history of CAD, obesity. Risk Scores: Risk Factors: DM, Current or recent (<one month) smoker, HTN, HLP, family history of CAD, obesity. (BEBETO MARTINEZ APRN) Course & Med Decision Making Course & Med Decision Making Pertinent Labs and Imaging studies reviewed. (See chart for details) This is a 40-year-old female patient presenting to the ED today with bilateral knee pain with pain radiating to bilateral calves into the bilateral ankles, also complaining of bilateral calves cramping since this morning. Bilateral knee x-rays, bilateral ankle x-rays and venous Doppler of bilateral lower extremities are negative for any acute findings CMP with no acute findings, normal potassium. Discharge to home. Follow-up with PCP in a week (BEBETO MARTINEZ APRN) Course & Med Decision Making I was the Attending physician on the above date of service of this patient. This patient was evaluated, examined, treated, and dispositioned from the emergency department by the mid-level practitioner. Although I was working at the time , no assistance was requested. Electronically signed, David Clarke DO (DAVID CLARKE DO) Hugh Disclaimer Dragon Disclaimer This electronic medical record was generated, in whole or in part, using a voice recognition dictation system. (BEBETO MARTINEZ APRN) Departure Departure: Impression: Primary Impression: Acute bilateral knee pain Additional Impressions: Acute bilateral ankle pain Muscle cramps Disposition: HOME / SELF CARE / HOMELESS Condition: STABLE Referrals: PCP,NO (PCP) follow up in one week with your doctor Patient Instructions: Knee Pain, [id number], Muscle Cramps Additional Instructions: You were evaluated in the emergency room for bilateral knee pain, ankle pain and calf cramping. Please continue to get up and move to reduce the cramping. You can take [id number] pain relievers as needed. We wrote you a muscle relaxer, take it as needed. Follow-up with your doctor in 1 week Scripts Cyclobenzaprine Hcl (CYCLOBENZAPRINE HCL) 10 Mg Tablet 1 TAB PO TID, #30 TAB Prov: BEBETO MARTINEZ APRN 04/16/21 Cyclobenzaprine Hcl (CYCLOBENZAPRINE HCL) 10 Mg Tablet 1 TAB PO TID, #30 TAB Prov: BEBETO MARTINEZ APRN 04/16/21 Problem Qualifiers BEBETO MARTINEZ APRN Apr 16, 2021 10:57 DAVID CLARKE DO Apr 18, 2021 06:55
--- NOTE | 2021-04-16 11:20 | RAD ---
PROCEDURE: Ultrasound venous system of the bilateral lower extremity 04/16/2021 11:18 AM. REASON FOR STUDY: Reason: cramping / Spl. Instructions: / History: . TECHNIQUE: Color Doppler and spectral waveform analysis was performed along with real-time grayscale technique. FINDINGS: The deep veins of the lower extremities show normal compressibility and normal Doppler flow and augmentation of flow extending from the common femoral segment to the popliteal segment. The vis ualized calf veins also appear normal. IMPRESSION: No evidence of DVT. Electronically signed by: Damián Jimenez Jr., MD (04/16/2021 11:18 AM) [id number]
[2021-04-16 12:00] LABS: ALBUMIN 3.3 g/dL (3.4-5.0); CALCIUM 9.4 mg/dL (8.5-10.1); CREATININE 0.8 mg/dL (0.6-1.0); GFR 79.9; POTASSIUM 4.4 mmol/L (3.5-5.1); TOTAL BILIRUBIN 0.2 mg/dL (0.2-1.0); TOTAL PROTEIN 6.7 g/dL (6.4-8.2)
[2021-04-16] MEDS ORDERED: CYCL10TA19 PO ×2 (12:18→12:46)
[2021-04-16 12:47] VITALS: BP 120/81
== END 2021-04-16 12:48 | disposition home or self-care (01) ==
LOC: ER 09:44
DX: M25.571 Pain in right ankle and joints of right foot (principal); M25.572 Pain in left ankle and joints of left foot; M25.561 Pain in right knee; M25.562 Pain in left knee; R25.2 Cramp and spasm; R22.43 Localized swelling, mass and lump, lower limb, bilateral
CPT/HCPCS: 36415; 80053; 93970; 99284; 99285; 73564-50; 73610-50

== ENCOUNTER 2021-10-09 19:40 | Emergency (ER) | payer OTHER ==
[~2021-10-09] VITALS: Ht 162.6 cm; Wt 62.3 kg
[~2021-10-09 19:40] MED LIST changes: +CYCL10TA19 PO
--- NOTE | 2021-10-09 20:09 | PHYS DOC ---
Past History Past Medical History: Endometriosis, Other Additional Past Medical Histor: ABD MIGRANES (ELIZABETH OLIVIER APRN) Past Surgical History: Cholecystectomy, , Tubal ligation, Other Additional Past Surgical Histo: ABD EXPLOR LAP (ELIZABETH OLIVIER APRN) Smoking: Non-smoker Alcohol Use: Occasionally Drug Use: None (ELIZABETH OLIVIER APRN) General Adult EDM: Chief Complaint: ABDOMINAL PAIN HPI: HPI: Patient is a 41-year-old female who presents to the emergency department for right upper quadrant pain that radiates to her back that started last night at midnight. Patient rates her pain 7 out of 10. She describes it as a cramping dull ache. She reports nausea and vomiting. She denies urinary symptoms, fever, blood in her stools or vomit. Patient has a history of abdominal migraines as well as cholecystectomy, and exploratory laparotomy. Patient reports that her symptoms feel similar to her abdominal migraines. She reports that she takes Maxalt at home but when they get very severe she requires Phenergan and fentanyl. (ELIZABETH OLIVIER APRN) Review of Systems: Review of Systems: Constitutional: See HPI GI: See HPI : See HPI Musculoskeletal: See HPI (ELIZABETH OLIVIER APRN) Current Medications: Current Meds: Current Medications Medications (Trade) Dose Ordered Sig/Suha Start Time Stop Time Status Last Admin Dose Admin Fentanyl Citrate (Fentanyl 2ml Vial) 50 mcg 1X ONCE 10/09/21 20:15 10/09/21 20:16 UNV Ondansetron HCl (Zofran) 4 mg 1X ONCE 10/09/21 20:15 10/09/21 20:16 UNV Sodium Chloride 1,000 ml @ 1,000 mls/hr Q1H 10/09/21 20:15 10/09/21 21:14 UNV (ELIZABETH OLIVIER APRN) Allergies: Allergies: Allergies Coded Allergies Type Severity Reaction Last Updated Verified No Known Drug Allergies 10/09/21 No (ELIZABETH OLIVIER APRN) Physical Exam: PE: Constitutional: Well developed, well nourished, no acute distress, non-toxic appearance. [] HENT: Normocephalic, atraumatic, bilateral external ears normal, oropharynx moist, no oral exudates, nose normal. [] Eyes: PERRL, EOMI, conjunctiva normal, no discharge. [] Neck: Normal range of motion, no tenderness, supple, no stridor. [] Cardiovascular:Heart rate regular rhythm, no murmur [] Lungs & Thorax: Bilateral breath sounds clear to auscultation [] Abdomen: Bowel sounds normal, soft, right upper quadrant tenderness with palpation, no abdominal guarding or rigidity,, no masses, no pulsatile masses. [] Skin: Warm, dry, no erythema, no rash. [] Back: No tenderness, no CVA tenderness. [] Extremities: No tenderness, no cyanosis, no clubbing, ROM intact, no edema. [] Neurologic: Alert and oriented X 3, normal motor function, normal sensory function, no focal deficits noted. [] Psychologic: Affect normal, judgement normal, mood normal. [] (ELIZABETH OLIVIER APRN) Current Patient Data: Labs: Laboratory Tests Test 10/09/21 19:08 POC Urine HCG, Qualitative hcg negative (Negative) Vital Signs: Vital Signs Date Time Temp Pulse Resp B/P (MAP) Pulse Ox O2 Delivery O2 Flow Rate FiO2 10/09/21 19:52 98.3 77 20 134/86 (102) 96 Room Air (ELIZABETH OLIVIER APRN) EKG: EKG: [] (ELIZABETH OLIVIER APRN) Radiology/Procedures: Radiology/Procedures: PROCEDURE: CT ABDOMEN PELVIS WO CONTRAST EXAMINATION: CT ABDOMEN+PELVIS WO CLINICAL HISTORY: Right upper quadrant abdominal pain. TECHNIQUE: Imaging of the abdomen and pelvis was performed without intravenous contrast using standard technique, scanning from just above the dome of the diaphragm to the symphysis pubis. Unenhanced imaging is limited for the evaluation of some intra-abdominal and pelvic pathology. CT Dose Reduction Employed: One or more of the following individualized dose reduction techniques were utilized for this examination: 1. Automated exposure control 2. Adjustment of the mA and/or kV according to patient size 3. Use of iterative reconstruction technique. COMPARISON: 01/21/2020 FINDINGS: Visualized heart and lungs unremarkable. Cholecystectomy. Liver, pancreas, spleen, and adrenal glands unremarkable. Multiple small nonobstructive left renal calculi. Punctate nonobstructive right renal calculus. Minimally filled urinary bladder, suboptimally evaluated. Uterus and ovaries unremarkable. Mild free fluid in the posterior uterine fossa, nonspecific. Dilated loop of small bowel in the right upper quadrant measuring up to 3.5 cm in diameter with likely enteroenteric intussusception, best appreciated on series 4 image 56 and series 3 image 16. Nondilated appendix. No abdominal aortic or iliac artery aneurysm. No evidence of acute osseous abnormality. IMPRESSION: Enteroenteric intussusception in the right upper quadrant with associated dilated loops of small bowel as described. Bilateral nonobstructive nephrolithiasis. Electronically signed by: Jd Sorensen DO (10/09/2021 9:14 PM) [facility] DICTATED AND SIGNED BY: JD SORENSEN DO DATE: 10/09/212102 CC: KENDALL ROGERS DO; ELIZABETH OLIVIER APRN ~ (ELIZABETH OLIVIER APRN) Heart Score: C/O Chest Pain: N/A Risk Factors: Risk Factors: DM, Current or recent (<one month) smoker, HTN, HLP, family history of CAD, obesity. Risk Scores: Score 0 - 3: 2.5% MACE over next 6 weeks - Discharge Home Score 4 - 6: 20.3% MACE over next 6 weeks - Admit for Clinical Observation Score 7 - 10: 72.7% MACE over next 6 weeks - Early Invasive Strategies (ELIZABETH OLIVIER APRN) Course & Med Decision Making: Course & Med Decision Making Pertinent Labs and Imaging studies reviewed. (See chart for details) [] Patient presents to the emergency department for right upper quadrant pain. She has a history of abdominal migraines and reports that this feels like an exacerbation. Patient has already taken her Maxalt at home without relief. Work-up in the ER consisted of blood work including lipase, urinalysis and CT imaging of abdomen and pelvis. Patient treated with IV fluids, nausea and pain medication. Patient's blood work was unremarkable. Her urinalysis was negative. Patient CT scan of her abdomen and pelvis shows intussusception in her right upper quadrant. I discussed these findings with Dr. Werner and he advised placement of an NG tube due to nausea and vomiting and transferred to [facility] for surgery consult. I discussed these findings with Dr. Chilel who agreed to admit the patient under his services for intussusception. I spoke with patient and discussed with her her results and care plan she is agreeable to transfer at this time. Awaiting ER bed placement at [facility] at this time 2143. (ELIZABETH OLIVIER APRN) Dragon Disclaimer: Dragon Disclaimer: This electronic medical record was generated, in whole or in part, using a voice recognition dictation system. (ELIZABETH OLIVIER APRN) Attending Co-Sign The patient was seen and interviewed as well as examined at the bedside. The chart was reviewed. The case was discussed. Agree with the plan of care. (JEANETTE LEAL DO) Departure Departure: Impression: Primary Impression: Intussusception Disposition: 02 SHORT TERM HOSPITAL Condition: GOOD Referrals: KENDALL ROGERS DO (PCP) ELIZABETH OLIVIER APRN October 09, 2021 20:09 JEANETTE LEAL DO October 11, 2021 06:40
[2021-10-09] MEDS ORDERED: IV NORMAL SALINE 1,000ML 1,000 ML IV SCH (20:15)
[2021-10-09] MEDS ORDERED: ONDANSETRON PF 4 MG/2 ML VIAL. IVP ONE (20:15)
[2021-10-09 20:23] LABS: BASO % 0 % (0-3); EOS % 0 % (0-3); HEMOGLOBIN 13.2 g/dL (12.0-15.5); LYMPH # 1.9 x10^3/uL (1.0-4.8); LYMPH % 17 % (24-48); MEAN CORPUSCULAR HEMOGLOBIN 32 pg (25-35); MEAN CORPUSCULAR HGB CONC 34 g/dL (31-37); MEAN CORPUSCULAR VOLUME 94 fL (79-100); MONO # 0.6 x10^3/uL (0.0-1.1); MONO % 5 % (0-9); NEUT # 8.3 x10^3uL (1.8-7.7); NEUT % 77 % (31-73); PLATELET COUNT 264 x10^3/uL (140-400); RED BLOOD COUNT 4.14 x10^6/uL (3.50-5.40); WHITE BLOOD COUNT 10.8 x10^3/uL (4.0-11.0)
[2021-10-09 20:27] LABS: BACTERIA,URINE 0 /HPF (0-FEW); CLARITY,URINE CLEAR; COLOR,URINE YELLOW; GLUCOSE,URINE NEG (NEG); NITRITE,URINE NEG (NEG); SQUAMOUS EPITHELIAL CELL,UR MANY /LPF; UROBILINOGEN,URINE 0.2 mg/dL (0.2 mg/dL); WBC,URINE 0 /HPF (0-4)
[2021-10-09 20:32] LABS: CALCIUM 9.4 mg/dL (8.5-10.1); CREATININE 0.7 mg/dL (0.6-1.0); GFR 92.7; POTASSIUM 4.3 mmol/L (3.5-5.1)
[2021-10-09 20:38] LABS: ALBUMIN/GLOBULIN RATIO 0.8 (1.0-1.7); TOTAL BILIRUBIN 0.4 mg/dL (0.2-1.0)
--- NOTE | 2021-10-09 21:16 | RAD ---
EXAMINATION: CT ABDOMEN+PELVIS WO CLINICAL HISTORY: Right upper quadrant abdominal pain. TECHNIQUE: Imaging of the abdomen and pelvis was performed without intravenous contrast using standar d technique, scanning from just above the dome of the diaphragm to the symphysis pubis. Unenhanced i maging is limited for the evaluation of some intra-abdominal and pelvic pathology. CT Dose Reduction Employed: One or more of the following individualized dose reduction techniques wer e utilized for this examination: 1. Automated exposure control 2. Adjustment of the mA and/or kV ac cording to patient size 3. Use of iterative reconstruction technique. COMPARISON: 01/21/2020 FINDINGS: Visualized heart and lungs unremarkable. Cholecystectomy. Liver, pancreas, spleen, and adrenal glands unremarkable. Multiple small nonobstructive left renal calculi. Punctate nonobstructive right renal calculus. Minimally filled urinary bladder, suboptimally evaluated. Uterus and ovaries unremarkable. Mild free fluid in the posterior uterine fossa, nonspecific. Dilated loop of small bowel in the right upper quadrant measuring up to 3.5 cm in diameter with likel y enteroenteric intussusception, best appreciated on series 4 image 56 and series 3 image 16. Nondila harmony appendix. No abdominal aortic or iliac artery aneurysm. No evidence of acute osseous abnormality. IMPRESSION: Enteroenteric intussusception in the right upper quadrant with associated dilated loops of small velia l as described. Bilateral nonobstructive nephrolithiasis. Electronically signed by: Jd Mcallister DO (10/09/2021 9:14 PM) [facility]
[2021-10-09] MEDS ORDERED: ONDANSETRON PF 4 MG/2 ML VIAL. IVP PRN (21:45)
[2021-10-09] MEDS ORDERED: MORPHINE SULFATE 2 MG/ML DISP.SYRIN. IV PRN (21:45)
[2021-10-09] MEDS ORDERED: MORPHINE SULFATE 2 MG/ML DISP.SYRIN. IV ONE (22:00)
[2021-10-09 22:49] VITALS: BP 132/75
--- NOTE | 2021-10-10 00:31 | RAD ---
EXAM: XR ABDOMEN 1V 10/09/2021 10:15 PM CLINICAL INDICATION: NG tube confirmation COMPARISON: Abdominal radiograph 10/09/2021 TECHNIQUE: AP view of the abdomen FINDINGS: New nasogastric tube terminating in the distal stomach or first portion of the duodenum. T here are cholecystectomy clips. Bowel gas pattern is nonobstructive. Normal volume of stool. IMPRESSION: New nasogastric tube terminating in the distal stomach or first portion of the duodenum. Electronically signed by: Sonya Fatima MD (10/10/2021 12:28 AM) [facility]
== END 2021-10-09 23:05 | disposition short-term general hospital (02) ==
LOC: ER 19:40
DX: K56.1 Intussusception (principal); Z90.49 Acquired absence of other specified parts of digestive tract; Z98.890 Other specified postprocedural states; Z98.51 Tubal ligation status
CPT/HCPCS: 36415; 74018; 74176; 80053; 81001; 81025; 83690; 85025; 96361; 96374; 96375; 99285; J2270; J2405; J3010; J7030

== ENCOUNTER 2021-10-29 12:36 | Emergency (ER) | payer OTHER ==
[~2021-10-29] VITALS: Ht 162.6 cm; Wt 62.3 kg
[2021-10-29 12:46] VITALS: BP 141/97
--- NOTE | 2021-10-29 13:08 | PHYS DOC ---
Past History Past Medical History: Endometriosis, Other Additional Past Medical Histor: ABD MIGRANES Past Surgical History: Cholecystectomy, , Tubal ligation, Other Additional Past Surgical Histo: ABD EXPLOR LAP Smoking: Non-smoker Alcohol Use: None Drug Use: None Adult General Chief Complaint Chief Complaint: GI PROBLEM HPI HPI Patient is a 41 year old female who presents with complaint of right-sided abdominal pain. Patient was seen earlier this month on October 09, 2021 in the emergency department with complaints of abdominal pain. CT imaging performed showed findings concerning for intussusception. Patient was transferred to [facility]. The patient underwent additional testing which did not redemonstrate intussusception but did show a normal small bowel follow- through series. The patient has history of recurrent abdominal pain, abdominal migraines, and has had an extensive GI work-up in the past. Patient currently follows with Dr. Mohamud at [facility]. She states that she was given a pill camera 4 days ago to help further diagnose possible small intestinal pathology. She states that she did not pass the camera and was told that she would have x-rays performed in 2 days from today to assess position of the pill camera. She states however that she started having worsening pain symptoms yesterday that have progressed to the right upper quadrant similar to what she had prior. She thus came to the emergency department for further evaluation. Denies fevers, vomiting, or bloody stools. Review of Systems Review of Systems Constitutional: Denies fever or chills [] Eyes: Denies change in visual acuity, redness, or eye pain [] HENT: Denies nasal congestion or sore throat [] Respiratory: Denies cough or shortness of breath [] Cardiovascular: Denies chest pain or edema [] GI: Abdominal pain, nausea, denies vomiting, bloody stools or diarrhea [] : Denies dysuria or hematuria [] Musculoskeletal: Denies back pain or joint pain [] Integument: Denies rash or skin lesions [] Neurologic: Denies headache, focal weakness or sensory changes [] All other systems were reviewed and found to be within normal limits, except as documented in this note. Allergies Allergies Allergies Coded Allergies Type Severity Reaction Last Updated Verified No Known Drug Allergies 10/09/21 No Physical Exam Physical Exam Constitutional: Alert, afebrile, appears in mild to moderate discomfort. [] HENT: Normocephalic, atraumatic, bilateral external ears normal, oropharynx moist, no oral exudates, nose normal. [] Eyes: PERRLA, EOMI, conjunctiva normal, no discharge. [] Neck: Normal range of motion, no tenderness, supple, no stridor. [] Cardiovascular:Heart rate regular rhythm, no murmur [] Lungs & Thorax: Bilateral breath sounds clear to auscultation [] Abdomen: Bowel sounds normal, soft, right upper quadrant and periumbilical tenderness to palpation, no masses, no pulsatile masses. [] Skin: Warm, dry, no erythema, no rash. [] Back: No tenderness, no CVA tenderness. [] Extremities: No tenderness, no cyanosis, no clubbing, ROM intact, no edema. [] Neurologic: Alert and oriented X 3, normal motor function, normal sensory function, no focal deficits noted. [] Current Patient Data Vital Signs Vital Signs Date Time Temp Pulse Resp B/P (MAP) Pulse Ox O2 Delivery O2 Flow Rate FiO2 10/29/21 12:46 98.4 84 20 141/97 (112) 98 Room Air Lab Results Laboratory Tests Test 10/29/21 13:38 White Blood Count 10.7 x10^3/uL Red Blood Count 4.11 x10^6/uL Hemoglobin 13.4 g/dL Hematocrit 39.3 % Mean Corpuscular Volume 96 fL Mean Corpuscular Hemoglobin 33 pg Mean Corpuscular Hemoglobin Concent 34 g/dL Red Cell Distribution Width 13.1 % Platelet Count 249 x10^3/uL Neutrophils (%) (Auto) 63 % Lymphocytes (%) (Auto) 29 % Monocytes (%) (Auto) 8 % Eosinophils (%) (Auto) 1 % Basophils (%) (Auto) 1 % Neutrophils # (Auto) 6.7 x10^3uL Lymphocytes # (Auto) 3.1 x10^3/uL Monocytes # (Auto) 0.8 x10^3/uL Eosinophils # (Auto) 0.1 x10^3/uL Basophils # (Auto) 0.1 x10^3/uL Sodium Level 137 mmol/L Potassium Level 3.9 mmol/L Chloride Level 103 mmol/L Carbon Dioxide Level 25 mmol/L Anion Gap 9 Blood Urea Nitrogen 16 mg/dL Creatinine 0.9 mg/dL Estimated GFR (Cockcroft-Gault) 69.3 BUN/Creatinine Ratio 18 Glucose Level 97 mg/dL Calcium Level 9.3 mg/dL Total Bilirubin 0.2 mg/dL Aspartate Amino Transf (AST/SGOT) 15 U/L Alanine Aminotransferase (ALT/SGPT) 24 U/L Alkaline Phosphatase 43 U/L Total Protein 6.5 g/dL Albumin 2.8 g/dL Albumin/Globulin Ratio 0.8 Lipase 63 U/L Current Medications Medications (Trade) Dose Ordered Sig/Suha Route PRN Reason Start Time Stop Time Status Last Admin Dose Admin Fentanyl Citrate (Fentanyl 2ml Vial) 50 mcg PRN Q15MIN PRN IV PAIN GREATER THAN 3/10 10/29/21 13:15 10/30/21 13:14 10/29/21 14:22 Ondansetron HCl (Zofran) 4 mg 1X ONCE IVP 10/29/21 13:15 10/29/21 13:16 DC 10/29/21 13:29 Sodium Chloride 1,000 ml @ 1,000 mls/hr 1X ONCE IV 10/29/21 14:00 10/29/21 14:59 DC 10/29/21 14:05 EKG EKG Not performed[] Radiology/Procedures Radiology/[place] [address] IMAGING REPORT Signed PATIENT: TU MACHADO ACCOUNT: [id number] : 1980 LOCATION: ER AGE: 41 SEX: F EXAM STATUS: REG ER ORD. PHYSICIAN: HILDA RICHARDSON MD REASON: right-sided abdominal pain, hx of intussuception PROCEDURE: CT ABDOMEN PELVIS WO CONTRAST PQRS Compliance Statement: One or more of the following individualized dose reduction techniques were utilized for this examination: 1. Automated exposure control 2. Adjustment of the mA and/or kV according to patient size 3. Use of iterative reconstruction technique CT abdomen/pelvis without contrast 10/29/2021 1:08 PM INDICATION: Right-sided abdominal pain COMPARISON: CT abdomen/pelvis 10/09/2021 TECHNIQUE: Multiple axial CT images of the abdomen and pelvis were obtained without intravenous contrast. Coronal and sagittal reformats are provided. FINDINGS: Lung bases are clear. Heart size is within normal limits. Evaluation of the solid abdominal viscera is limited by lack of intravenous contrast. Liver, spleen, adrenal glands and pancreas are normal in appearance. Gallbladder surgically absent. The abdominal aorta is normal in course and caliber. There are no pathologically enlarged lymph nodes in the abdomen and pelvis. There is no abdominal free fluid. There is no free intraperitoneal air. There is focal dilatation of the jejunum measuring up to 3.9 cm. There is an endoscopy capsule metallic density identified within the proximal to mid jejunum measuring 1 with associated streak artifact limiting evaluation. There is adjacent circumferential wall thickening. No significant adjacent inflammatory changes. No definite intussusception There is decompression of small bowel distal to this level. Large bowel is normal in caliber. Appendix is normal in appearance. Trace pelvic free fluid. The kidneys are relatively symmetric in appearance. There is no suspicious renal mass within the limitations of a noncontrast examination. There is no hydronephrosis. At least 5 nonobstructing 5 identified within the left kidney measuring 3 mm. No calculi within the ureters or urinary bladder. Urinary bladder is within normal limits given degree of distention. Uterus and adnexa are normal by CT. No suspicious osseous abnormality is identified. IMPRESSION: Endoscopy capsule identified within the proximal to mid jejunum with associated mild jejunal dilatation measuring up to 3.9 cm. Consideration may be given for ileus versus stricture of benign or malignant etiology. A definite intussusception is not visualized. Direct visualization with endoscopy is recommended. Distal to this region, there is decompression of the small and large bowel. FOR INTERNAL CODING PURPOSES Critical result: Findings discussed with HILDA RICHARDSON MD at 10/29/2021 2:16 PM. RESULT CODE: (C) [] Heart Score C/O Chest Pain: No Risk Factors: Risk Factors: DM, Current or recent (<one month) smoker, HTN, HLP, family history of CAD, obesity. Risk Scores: Risk Factors: DM, Current or recent (<one month) smoker, HTN, HLP, family history of CAD, obesity. Course & Med Decision Making Course & Med Decision Making Pertinent Labs and Imaging studies reviewed. (See chart for details) Patient was given IV fluids, fentanyl, and Zofran in the emergency department. CT imaging performed shows the pill capsule to be present within the jejunum. The radiologist states that the radiographic findings are consistent with possible ileus versus possible partial small bowel obstruction. The patient's vital signs are stable and patient's blood work shows no evidence of acidosis or leukocytosis. I contacted Dr. Vaz of gastroenterology and spoke with him regarding patient case. He states that this time there is no indication for admission or immediate procedural intervention. 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 These recommendations were communicated to the patient. The patient was provided with prescriptions for Phenergan and dicyclomine for outpatient treatment of symptoms. Recommend return to the emergency department for any worsening symptoms. Patient voiced understanding and in agreement with treatment plan. [] Dragon Disclaimer Dragon Disclaimer This electronic medical record was generated, in whole or in part, using a voice recognition dictation system. Departure Departure: Impression: Primary Impression: Abdominal pain Additional Impression: Retained foreign body Disposition: HOME / SELF CARE / HOMELESS Condition: STABLE Referrals: KENDALL ROGERS DO (PCP) Patient Instructions: Abdominal Pain (Nonspecific) Additional Instructions: You will need to follow-up with your bag filler machine operator in 2 days and have repeat x-rays performed to evaluate the position of your pill camera. Return to the emergency department for any worsening symptoms. Scripts Dicyclomine Hcl (DICYCLOMINE HCL) 20 Mg Tablet 1 TAB PO QID, #30 TAB Prov: HILDA RICHARDSON MD 10/29/21 Promethazine Hcl (PROMETHAZINE HCL) 25 Mg Tablet 1 TAB PO Q6HRS PRN for NAUSEA/VOMITING, #20 TAB Prov: HILDA RICHARDSON MD 10/29/21 Problem Qualifiers Primary Impression: Abdominal pain Abdominal location: right upper quadrant Qualified Codes: R10.11 - Right upper quadrant pain HILDA RICHARDSON MD October 29, 2021 13:07
[2021-10-29] MEDS ORDERED: ONDANSETRON PF 4 MG/2 ML VIAL. IVP ONE (13:15)
[2021-10-29] MEDS ORDERED: IV NORMAL SALINE 1,000ML 1,000 ML IV ONE (14:00)
[2021-10-29 14:04] LABS: BASO # 0.1 x10^3/uL (0.0-0.2); BASO % 1 % (0-3); EOS # 0.1 x10^3/uL (0.0-0.7); EOS % 1 % (0-3); HEMATOCRIT 39.3 % (36.0-47.0); HEMOGLOBIN 13.4 g/dL (12.0-15.5); LYMPH # 3.1 x10^3/uL (1.0-4.8); LYMPH % 29 % (24-48); MEAN CORPUSCULAR HEMOGLOBIN 33 pg (25-35); MEAN CORPUSCULAR HGB CONC 34 g/dL (31-37); MEAN CORPUSCULAR VOLUME 96 fL (79-100); MONO # 0.8 x10^3/uL (0.0-1.1); MONO % 8 % (0-9); NEUT # 6.7 x10^3uL (1.8-7.7); NEUT % 63 % (31-73); PLATELET COUNT 249 x10^3/uL (140-400); RED BLOOD COUNT 4.11 x10^6/uL (3.50-5.40); RED CELL DISTRIBUTION WIDTH 13.1 % (11.5-14.5); WHITE BLOOD COUNT 10.7 x10^3/uL (4.0-11.0)
[2021-10-29 14:13] LABS: CALCIUM 9.3 mg/dL (8.5-10.1); CREATININE 0.9 mg/dL (0.6-1.0); GFR 69.3; POTASSIUM 3.9 mmol/L (3.5-5.1)
[2021-10-29 14:21] LABS: ALBUMIN 2.8 g/dL (3.4-5.0); ALBUMIN/GLOBULIN RATIO 0.8 (1.0-1.7); TOTAL BILIRUBIN 0.2 mg/dL (0.2-1.0); TOTAL PROTEIN 6.5 g/dL (6.4-8.2)
--- NOTE | 2021-10-29 14:26 | RAD ---
PQRS Compliance Statement: One or more of the following individualized dose reduction techniques were utilized for this examinat ion: 1. Automated exposure control 2. Adjustment of the mA and/or kV according to patient size 3. Use of iterative reconstruction technique CT abdomen/pelvis without contrast 10/29/2021 1:08 PM INDICATION: Right-sided abdominal pain COMPARISON: CT abdomen/pelvis 10/09/2021 TECHNIQUE: Multiple axial CT images of the abdomen and pelvis were obtained without intravenous contr ast. Coronal and sagittal reformats are provided. FINDINGS: Lung bases are clear. Heart size is within normal limits. Evaluation of the solid abdominal viscera is limited by lack of intravenous contrast. Liver, spleen, adrenal glands and pancreas are normal in appearance. Gallbladder surgically absent. The abdominal aorta is normal in course and caliber. There are no pathologically enlarged lymph nodes in the abdomen and pelvis. There is no abdominal free fluid. There is no free intraperitoneal air. There is focal dilatation of the jejunum measuring up to 3.9 cm. There is an endoscopy capsule metall ic density identified within the proximal to mid jejunum measuring 1 with associated streak artifact limiting evaluation. There is adjacent circumferential wall thickening. No significant adjacent infla mmatory changes. No definite intussusception There is decompression of small bowel distal to this lev el. Large bowel is normal in caliber. Appendix is normal in appearance. Trace pelvic free fluid. The kidneys are relatively symmetric in appearance. There is no suspicious renal mass within the limi tations of a noncontrast examination. There is no hydronephrosis. At least 5 nonobstructing 5 identif ied within the left kidney measuring 3 mm. No calculi within the ureters or urinary bladder. Urinary bladder is within normal limits given degree of distention. Uterus and adnexa are normal by CT. No norwood spicious osseous abnormality is identified. IMPRESSION: Endoscopy capsule identified within the proximal to mid jejunum with associated mild jejunal dilatati on measuring up to 3.9 cm. Consideration may be given for ileus versus stricture of benign or maligna nt etiology. A definite intussusception is not visualized. Direct visualization with endoscopy is rec ommended. Distal to this region, there is decompression of the small and large bowel. FOR INTERNAL CODING PURPOSES Critical result: Findings discussed with HILDA RICHARDSON MD at 10/29/2021 2:16 PM. RESULT CODE: (C) Electronically signed by: Veena Castro MD (10/29/2021 2:24 PM) [id number]
[2021-10-29] MEDS ORDERED: PROM25TA10 PO (15:40)
[2021-10-29] MEDS ORDERED: DICY20TA PO (15:40)
== END 2021-10-29 16:34 | disposition home or self-care (01) ==
LOC: ER 12:36
DX: M79.5 Residual foreign body in soft tissue (principal); R10.11 Right upper quadrant pain; R10.13 Epigastric pain; Z90.49 Acquired absence of other specified parts of digestive tract; Z98.890 Other specified postprocedural states; Z98.51 Tubal ligation status
CPT/HCPCS: 36415; 74176; 80053; 83690; 85025; 96361; 96374; 96375; 99284; J2405; J3010; J7030